=== PATIENT | female | born 1995 | race Caucasian/White ===

== ENCOUNTER 2019-02-17 09:39 | Emergency (ER) | payer OTHER ==
[~2019-02-17] VITALS: Ht 175.3 cm; Wt 94.8 kg
[2019-02-17 09:51] VITALS: Ht 175.3 cm; Wt 94.8 kg
[2019-02-17 13:08] VITALS: BP 114/71
== END 2019-02-17 13:08 | disposition home or self-care (01) ==
LOC: ED 09:39
DX: G44.229 Chronic tension-type headache, not intractable (principal)
CPT/HCPCS: J1885